=== PATIENT | female | born 1950 | race Caucasian/White ===

== ENCOUNTER 2018-07-22 13:37 | Emergency (ER) | payer OTHER ==
[2018-07-22] MEDS ORDERED: Adacel (T-DAP) 0.5 ML SYRINGE ONE (13:58)
[2018-07-22] MEDS ORDERED: Lidocaine 2% PF 5 ML VIAL ONE (14:09)
[2018-07-22] MEDS ORDERED: Bacitracin Zinc 1 Packet ONE ×2 (14:33→14:47)
--- NOTE | 2018-07-22 16:21 | RAD ---
LEFT FINGER THREE VIEWS 07/22/18 Three views of the third digit show no fracture or opaque foreign body. The joints appear normal. IMPRESSION: No significant findings. POS: HOME
== END 2018-07-22 14:55 | disposition home or self-care (01) ==
LOC: BURERS 13:37
DX: S61.213A Laceration without foreign body of left middle finger without damage to nail, initial encounter (principal); I10 Essential (primary) hypertension; Z79.899 Other long term (current) drug therapy; W25.XXXA Contact with sharp glass, initial encounter
CPT/HCPCS: 12001; 90715; J2001